=== PATIENT | female | born 1990 | race Hispanic/Latino ===

== ENCOUNTER 2019-06-29 08:43 | Emergency (ER) | payer MEDICAID, OTHER, SELFPAY ==
[2019-06-29 09:53] LABS: Basophils # (Auto) 0.1 K/mm3 (0.0-0.1); Basophils % (Auto) 0.6 % (0.0-1.8); Eosinophils # (Auto) 0.2 K/mm3 (0.0-0.4); Eosinophils % (Auto) 2.4 % (0.0-4.3); Hematocrit 39.7 % (30.3-42.9); Hemoglobin 12.7 gm/dl (10.1-14.3); Lymphocytes # (Auto) 2.5 K/mm3 (1.2-5.4); Lymphocytes % (Auto) 25.1 % (13.4-35.0); Mean Corpuscular HGB Conc 32 % (30-34); Mean Corpuscular Volume 79 fl (79-97); Monocytes # (Auto) 0.5 K/mm3 (0.0-0.8); Platelet Count 384 K/mm3 (140-440); Red Cell Distribution Width 14.4 % (13.2-15.2)
[2019-06-29] MEDS ORDERED: ONDANSETRON 4 MG/2 ML INJ IV ONE (10:05)
[2019-06-29] MEDS ORDERED: SODIUM CHLORIDE 0.9% 1000 ML 1,000 ML IV ONE (10:05)
[2019-06-29] MEDS ORDERED: KETOROLAC 30 MG/1 ML INJ IV ONE (10:05)
--- NOTE | 2019-06-29 10:05 | Emergency Department Report ---
[place] [facility] Chief Complaint: Back Pain/Injury Stated Complaint: KIDNEY STONE/4 MONTHS PAIN Time Seen by Provider: 06/29/19 10:04 ED Review of Systems ROS: Stated complaint: KIDNEY STONE/4 MONTHS PAIN Other details as noted in HPI ED Past Medical Hx - Past Medical History Previous Medical History?: Yes Hx Hypertension: No Hx Congestive Heart Failure: No Hx Diabetes: No Hx Deep Vein Thrombosis: No Hx Renal Disease: No Hx Sickle Cell Disease: No Hx Seizures: No Hx Asthma: Yes (childhood) Hx COPD: No Hx HIV: No Additional medical history: irregular heart rate - Surgical History Past Surgical History?: Yes Additional Surgical History: - Social History Smoking Status: Never Smoker Substance Use Type: None - Medications Home Medications: Home Medications Medication Instructions Recorded Confirmed Last Taken Type Ibuprofen [Motrin 600 MG tab] 600 mg PO Q6H PRN #60 tablet 07/20/13 01/30/15 Unknown Rx oxyCODONE /ACETAMINOPHEN [Percocet 1 - 2 tab PO Q6H PRN #30 tablet 07/20/13 01/30/15 Unknown Rx 5/325 mg] Ibuprofen [Motrin] 800 mg PO Q8H PRN #30 tablet 01/30/15 Unknown Rx oxyCODONE /ACETAMINOPHEN [Percocet 1 - 2 tab PO Q6HR PRN #30 tablet 01/30/15 Unknown Rx 5/325] Dysuria Exam - Exam General: Vital signs noted. No distress. Alert and acting appropriately. Labs: Lab Results 06/29/19 Range/Units 09:21 WBC 10.0 (4.5-11.0) K/mm3 RBC 5.00 (3.65-5.03) M/mm3 Hgb 12.7 (10.1-14.3) gm/dl Hct 39.7 (30.3-42.9) % MCV 79 (79-97) fl MCH 25 L (28-32) pg MCHC 32 (30-34) % RDW 14.4 (13.2-15.2) % Plt Count 384 (140-440) K/mm3 Lymph % (Auto) 25.1 (13.4-35.0) % [place] % (Auto) 5.0 (0.0-7.3) % Eos % (Auto) 2.4 (0.0-4.3) % Baso % (Auto) 0.6 (0.0-1.8) % Lymph # 2.5 (1.2-5.4) K/mm3 [place] # 0.5 (0.0-0.8) K/mm3 Eos # 0.2 (0.0-0.4) K/mm3 Baso # 0.1 (0.0-0.1) K/mm3 Seg Neutrophils % 66.9 (40.0-70.0) % Seg Neutrophils # 6.7 (1.8-7.7) K/mm3 ED Course Vital Signs 06/29/19 09:07 Temperature 98.6 F Pulse Rate 95 H Respiratory 16 Rate Blood Pressure 145/86 [Left] O2 Sat by Pulse 99 Oximetry ED Medical Decision Making - Lab Data Result diagrams: 06/29/19 09:21 Critical care attestation.: If time is entered above; I have spent that time in minutes in the direct care of this critically ill patient, excluding procedure time. ED Disposition Condition: Stable Referrals: PRIMARY CARE, [Primary Care Provider] - 3-5 Days
[2019-06-29 10:17] LABS: Alanine Aminotransferase 14 units/L (7-56); Albumin 4.5 g/dL (3.9-5); BUN/Creatinine Ratio 15; Blood Urea Nitrogen 9 mg/dL (7-17); Calcium 9.5 mg/dL (8.4-10.2); Hemolysis Index 6
--- NOTE | 2019-06-29 11:04 | Emergency Department Report ---
ED General Adult HPI - General Chief complaint: Back Pain/Injury Stated complaint: KIDNEY STONE/4 MONTHS PAIN Time Seen by Provider: 06/29/19 10:04 Source: patient Mode of arrival: Ambulatory Limitations: No Limitations - History of Present Illness Initial comments: This is a 29-year-old female who has been seen twice at [facility] for back pain. She states that in January she was told that she had a 5-1/2 mm kidney stone in the what sounds like the right pelvis of the kidney. 2 weeks ago she return for recurrent back pain and was told she had an 8 on metered kidney stone distal to the kidney I presume in the ureter. She states that she attempted to get follow off with the urologist. However, the office asked her for $385 and advance and she was unable to pay the fee or thought it would be too expensive to have the subsequent care after the initial fee. Respirations states she vomited last night. She complains of right flank pain. She told the nurse that she "just wants the kidney stone removed. She declined pain medicine and an IV. She had a CT of her abdomen and pelvis ordered by the mid-level provider. I have canceled this. This would be the third CT in less than one years time. I have ordered a renal ultrasound and requested her previous CT taken 2 weeks ago at [facility]. It should be noted that we do not have urology coverage today. We will see if the patient has an emergency medical condition that requires transfer to another facility. The patient was encouraged to except medicine and an IV by the nurse. -: Gradual, month(s) Location: right (flank) Quality: aching Consistency: intermittent Improves with: none Worsens with: none Associated Symptoms: other (hematuria) Treatments Prior to Arrival: none - Related Data Previous Rx's Medication Instructions Recorded Last Taken Type Ibuprofen [Motrin 600 MG tab] 600 mg PO Q6H PRN #60 tablet 07/20/13 Unknown Rx oxyCODONE /ACETAMINOPHEN [Percocet 1 - 2 tab PO Q6H PRN #30 tablet 07/20/13 Unknown Rx 5/325 mg] Ibuprofen [Motrin] 800 mg PO Q8H PRN #30 tablet 01/30/15 Unknown Rx oxyCODONE /ACETAMINOPHEN [Percocet 1 - 2 tab PO Q6HR PRN #30 tablet 01/30/15 Unknown Rx 5/325] Nitrofurantoin Pierce/M-Cryst 100 mg PO Q12HR #20 capsule 06/29/19 Unknown Rx [Macrobid CAP] traMADol [Ultram 50 MG tab] 50 mg PO Q6HR PRN #14 tablet 06/29/19 Unknown Rx Allergies Allergy/AdvReac Type Severity Reaction Status Date / Time Penicillins Allergy Unknown Verified 09/10/13 01:03 ED Review of Systems ROS: Stated complaint: KIDNEY STONE/4 MONTHS PAIN Other details as noted in HPI Constitutional: denies: chills, fever Eyes: denies: eye pain, eye discharge, vision change ENT: denies: ear pain, throat pain Respiratory: denies: cough, shortness of breath, wheezing Cardiovascular: denies: chest pain, palpitations Endocrine: no symptoms reported Gastrointestinal: vomiting (yesterday). denies: abdominal pain, diarrhea Genitourinary: as per HPI, hematuria. denies: urgency, dysuria, discharge Musculoskeletal: back pain. denies: joint swelling, arthralgia Skin: denies: rash, lesions Neurological: denies: headache, weakness, paresthesias Psychiatric: denies: anxiety, depression Hematological/Lymphatic: denies: easy bleeding, easy bruising ED Past Medical Hx - Past Medical History Previous Medical History?: Yes Hx Hypertension: No Hx Congestive Heart Failure: No Hx Diabetes: No Hx Deep Vein Thrombosis: No Hx Renal Disease: No Hx Sickle Cell Disease: No Hx Seizures: No Hx Asthma: Yes (childhood) Hx COPD: No Hx HIV: No Additional medical history: irregular heart rate - Surgical History Past Surgical History?: Yes Additional Surgical History: - Social History Smoking Status: Never Smoker Substance Use Type: None - Medications Home Medications: Home Medications Medication Instructions Recorded Confirmed Last Taken Type Ibuprofen [Motrin 600 MG tab] 600 mg PO Q6H PRN #60 tablet 07/20/13 01/30/15 Unknown Rx oxyCODONE /ACETAMINOPHEN [Percocet 1 - 2 tab PO Q6H PRN #30 tablet 07/20/13 01/30/15 Unknown Rx 5/325 mg] Ibuprofen [Motrin] 800 mg PO Q8H PRN #30 tablet 01/30/15 Unknown Rx oxyCODONE /ACETAMINOPHEN [Percocet 1 - 2 tab PO Q6HR PRN #30 tablet 01/30/15 Unknown Rx 5/325] Nitrofurantoin [place]/M-Cryst 100 mg PO Q12HR #20 capsule 06/29/19 Unknown Rx [Macrobid CAP] traMADol [Ultram 50 MG tab] 50 mg PO Q6HR PRN #14 tablet 06/29/19 Unknown Rx ED Physical Exam - General Limitations: No Limitations ED Course Vital Signs 06/29/19 09:07 Temperature 98.6 F Pulse Rate 95 H Respiratory 16 Rate Blood Pressure 145/86 [Left] O2 Sat by Pulse 99 Oximetry - Reevaluation(s) Reevaluation #1: Due the patient's [facility] records indicate that she did have a stone in her proximal ureter associated with hydronephrosis. She was placed on Cipro. I do not know if she was cultured. She had worse pyuria than she has today which is minimal. She has no evidence of pyelonephrosis. The bilateral renal ultrasound shows that she has no hydronephrosis on the right associated with a kidney stone in the right pelvis. Therefore, likely any signs of toxicity or pyelonephrosis the patient will be referred to urology. The urine will be cultured. She will be given appropriate discharge instructions. 06/29/19 13:04 Reevaluation #2: On reexamination the patient looks well. She has no complaint of right flank pain. Indeed she actually refuses medication. Her white count is normal. She does not have a service syndrome. He does note there is no urologist crap game box person at this facility. 06/29/19 13:05 06/29/19 13:07 ED Medical Decision Making - Lab Data Result diagrams: 06/29/19 09:21 06/29/19 09:21 Laboratory Results - last 24 hr 06/29/19 06/29/19 09:21 09:21 WBC 10.0 RBC 5.00 Hgb 12.7 Hct 39.7 MCV 79 MCH 25 L MCHC 32 RDW 14.4 Plt Count 384 Lymph % (Auto) 25.1 [place] % (Auto) 5.0 Eos % (Auto) 2.4 Baso % (Auto) 0.6 Lymph # 2.5 [place] # 0.5 Eos # 0.2 Baso # 0.1 Seg Neutrophils % 66.9 Seg Neutrophils # 6.7 Sodium 141 Potassium 4.3 Chloride 102.5 Carbon Dioxide 24 Anion Gap 19 BUN 9 Creatinine 0.6 L Estimated GFR > 60 BUN/Creatinine Ratio 15 Glucose 96 Calcium 9.5 Total Bilirubin 0.20 AST 14 ALT 14 Alkaline Phosphatase 67 Total Protein 8.0 Albumin 4.5 Albumin/Globulin Ratio 1.3 Critical care attestation.: If time is entered above; I have spent that time in minutes in the direct care of this critically ill patient, excluding procedure time. ED Disposition Clinical Impression: Right flank pain, Right nephrolithiasis, Pyuria Disposition: TO HOME OR SELFCARE Is pt being admited?: No Does the pt Need Aspirin: No Condition: Stable Instructions: Kidney Stones (ED), Urinary Tract Infection in Women (ED) Additional Instructions: Should you develop fever chills or worsening back pain, urinary frequency or just feel sick it is important that he return to the emergency department for evaluation. I have used to the [facility]. They have thousands of urologists of albuterol. It would appear that they will likely recommend lithotripsy which is not an emergency procedure. An allergy to this outside medical clinic. They can follow-up on your urine culture which will be resulted by Tuesday. Prescriptions: Nitrofurantoin Pierce/M-Cryst [Macrobid CAP] 100 mg PO Q12HR #20 capsule traMADol [Ultram 50 MG tab] 50 mg PO Q6HR PRN #14 tablet PRN Reason: Pain Referrals: [facility] [Provider Group] - 3-5 Days PRIMARY CARE, [Primary Care Provider] - 3-5 Days [facility] [Provider Group] - 2-3 Days Time of Disposition: 13:10
--- NOTE | 2019-06-29 12:24 | Ultrasound Report ---
ULTRASOUND RENAL INDICATION: Hematuria. History of renal calculi COMPARISON: No relevant prior imaging study available. FINDINGS: RIGHT KIDNEY: Size: 10.8 cm. Echogenicity: Normal. Cortical thickness: Normal. Stones: There is a 1.6 x 0.6 x 1.2 cm echogenic structure in the right renal pelvis likely representi ng stone. This is not optimally visualized.. Hydronephrosis: None. Cyst or mass: None. LEFT KIDNEY: Size: 10.9 cm. Echogenicity: Normal. Cortical thickness: Normal. Stones: None. Hydronephrosis: None. Cyst or mass: None. Urinary Bladder: No significant abnormality. Free Fluid: None. Additional Findings: None. IMPRESSION 1. There appears to be a relatively large stone in the right renal pelvis. There is no hydronephrosis .. Signer Name: Dionte Malcolm MD Signed: 06/29/2019 12:20 PM Workstation Name: [id number]
[2019-06-29 12:33] LABS: Bilirubin,Urine NEG (Negative); Blood,Urine MOD (Negative); Color,Urine Yellow (Yellow); Mucus,Urine FEW /HPF; Protein,Urine <15 mg/dL mg/dL (Negative); Urobilinogen,Urine < 2.0 mg/dL (<2.0)
[2019-06-29 12:42] LABS: HCG Qualitative,Urine Negative (Negative)
[2019-06-29 13:34] VITALS: BP 138/78
== END 2019-06-29 13:40 | disposition home or self-care (01) ==
LOC: ED 08:43
DX: N20.0 Calculus of kidney (principal); N39.0 Urinary tract infection, site not specified; J45.909 Unspecified asthma, uncomplicated; Z88.0 Allergy status to penicillin
CPT/HCPCS: 36415; 76770; 80053; 81001; 81025; 85025; 87086; 96361; 96374; 96375; 99284; J1885; J2405; J7030

== ENCOUNTER 2019-07-26 10:46 | Emergency (ER) | payer SELFPAY ==
[2019-07-26] MEDS ORDERED: IBUPROFEN PO ONE (11:44)
[2019-07-26] MEDS ORDERED: ZOFRAN ODT PO ONE (11:44)
[2019-07-26 12:34] LABS: HCG Qualitative,Urine Negative (Negative)
[2019-07-26 12:37] LABS: Bilirubin,Urine NEG (Negative); Blood,Urine SM (Negative); Color,Urine Yellow (Yellow); Protein,Urine <15 mg/dL mg/dL (Negative); Urobilinogen,Urine < 2.0 mg/dL (<2.0)
[2019-07-26 12:43] LABS: Basophils # (Auto) 0.1 K/mm3 (0.0-0.1); Basophils % (Auto) 0.9 % (0.0-1.8); Eosinophils # (Auto) 0.2 K/mm3 (0.0-0.4); Eosinophils % (Auto) 2.3 % (0.0-4.3); Hemoglobin 12.5 gm/dl (10.1-14.3); Lymphocytes # (Auto) 2.3 K/mm3 (1.2-5.4); Lymphocytes % (Auto) 24.2 % (13.4-35.0); Mean Corpuscular HGB Conc 33 % (30-34); Mean Corpuscular Volume 79 fl (79-97); Monocytes # (Auto) 0.5 K/mm3 (0.0-0.8); Monocytes % (Auto) 5.1 % (0.0-7.3); Platelet Count 361 K/mm3 (140-440); Red Blood Count 4.81 M/mm3 (3.65-5.03); Red Cell Distribution Width 14.2 % (13.2-15.2)
[2019-07-26 13:02] LABS: BUN/Creatinine Ratio 14; Blood Urea Nitrogen 10 mg/dL (7-17); Calcium 9.4 mg/dL (8.4-10.2); Hemolysis Index 6
--- NOTE | 2019-07-26 14:02 | Ultrasound Report ---
US renal BILAT INDICATION: continued right flank pain with nausea, vomiting. History of renal calculi. COMPARISON: 06/29/2019 renal ultrasound. FINDINGS: Renal sonography suggests grossly normal renal cortical echogenicity and preserved contours . Imaged hepatic echogenic coarsening/possible fatty infiltration. RIGHT KIDNEY 9.9 cm in length with cortical thickness of 1 cm. A 0.5 cm interpolar corticomedullary j unction nonshadowing echogenicity nonspecific. No significant hydronephrosis, though mild prominence of the right proximal ureter just past the renal pelvis not entirely excluded as on image 8. LEFT KIDNEY estimated at 11.4 cm in length with cortical thickness of 1.2 cm. URINARY BLADDER suboptimally distended and assessed. IMPRESSION: 1. No acute significant renal sonographic abnormality, though mild nonspecific prominence of right pr oximal ureter not entirely excluded in this patient with approximately 1.6 x 1.2 cm echogenic right r enal pelvis possible calculus seen previously not definitively identified on the current exam. 2. Other findings, including possible fatty liver. Please also correlate clinically and further with CT, if warranted. Thank you for the opportunity to participate in this patient's care. Signer Name: Charity Pinto Signed: 07/26/2019 1:58 PM Workstation Name: [id number]
--- NOTE | 2019-07-26 17:43 | Emergency Department Report ---
ED General Adult HPI - General Chief complaint: Abdominal Pain Stated complaint: KIDNEY STONES/PAIN Time Seen by Provider: 07/26/19 11:36 Source: patient Mode of arrival: Ambulatory Limitations: No Limitations - History of Present Illness Initial comments: Patient is a 29-year-old female who states for the last 3 months she's had some right flank discomfort. Currently the pain is a 3 out of 10. She called her urologist office job Dr. Pina'angelito stating that she was in pain and was hoping to have surgery to remove the stone. Patient's was told by the front office of the urology clinic to come to the emergency department. Patient states she has no nausea vomiting fevers or chills. There is no radiation of her pain. Severity scale (0 -10): 0 - Related Data Home Medications Medication Instructions Recorded Confirmed Last Taken HYDROcodone/APAP 5-325 [[place] 1 each PO Q6HR PRN 07/19/19 07/26/19 07/25/19 5/325] traMADol [Ultram] 50 mg PO Q6HR PRN 07/26/19 07/26/19 07/25/19 Previous Rx's Medication Instructions Recorded Last Taken Type Nitrofurantoin [place]/M-Cryst 100 mg PO Q12HR #20 capsule 06/29/19 07/25/19 Rx [Macrobid CAP] Allergies Allergy/AdvReac Type Severity Reaction Status Date / Time Penicillins Allergy Unknown Verified 07/26/19 10:47 ED Review of Systems ROS: Stated complaint: KIDNEY STONES/PAIN Other details as noted in HPI Comment: All other systems reviewed and negative ED Past Medical Hx - Past Medical History Hx Hypertension: No Hx Congestive Heart Failure: No Hx Diabetes: No Hx Deep Vein Thrombosis: No Hx Renal Disease: No Hx Sickle Cell Disease: No Hx Seizures: No Hx Kidney Stones: Yes Hx Asthma: Yes ( CHILD ONLY) Hx COPD: No Hx HIV: No Additional medical history: irregular heart rate - Surgical History Additional Surgical History: - Social History Smoking Status: Never Smoker Substance Use Type: None - Medications Home Medications: Home Medications Medication Instructions Recorded Confirmed Last Taken Type Nitrofurantoin [place]/M-Cryst 100 mg PO Q12HR #20 capsule 06/29/19 07/26/19 07/25/19 Rx [Macrobid CAP] HYDROcodone/APAP 5-325 [[place] 1 each PO Q6HR PRN 07/19/19 07/26/19 07/25/19 History 5/325] traMADol [Ultram] 50 mg PO Q6HR PRN 07/26/19 07/26/19 07/25/19 History ED Physical Exam - General Limitations: No Limitations General appearance: alert, in no apparent distress - Head Head exam: Present: atraumatic, normocephalic - Eye Eye exam: Present: normal appearance - ENT ENT exam: Present: mucous membranes moist - Neck Neck exam: Present: normal inspection - Respiratory Respiratory exam: Present: normal lung sounds bilaterally. Absent: respiratory distress, wheezes, rales, rhonchi - Cardiovascular Cardiovascular Exam: Present: regular rate, normal rhythm. Absent: systolic murmur, diastolic murmur, rubs, gallop - GI/Abdominal GI/Abdominal exam: Present: soft, normal bowel sounds. Absent: distended, tenderness, guarding, rebound - Extremities Exam Extremities exam: Present: normal inspection - Back Exam Back exam: Present: normal inspection. Absent: CVA tenderness (R), CVA tenderness (L) - Neurological Exam Neurological exam: Present: alert, oriented X3 - Psychiatric Psychiatric exam: Present: normal affect, normal mood - Skin Skin exam: Present: warm, dry, intact, normal color. Absent: rash ED Course Vital Signs 07/26/19 10:52 Temperature 98.2 F Pulse Rate 73 Respiratory 16 Rate Blood Pressure 135/75 O2 Sat by Pulse 98 Oximetry ED Medical Decision Making - Lab Data Result diagrams: 07/26/19 12:29 07/26/19 12:29 Labs 07/26/19 07/26/19 07/26/19 12:02 12:29 12:29 WBC 9.3 RBC 4.81 Hgb 12.5 Hct 38.0 MCV 79 MCH 26 L MCHC 33 RDW 14.2 Plt Count 361 Lymph % (Auto) 24.2 [place] % (Auto) 5.1 Eos % (Auto) 2.3 Baso % (Auto) 0.9 Lymph # 2.3 [place] # 0.5 Eos # 0.2 Baso # 0.1 Seg Neutrophils % 67.5 Seg Neutrophils # 6.3 Sodium 139 Potassium 4.2 Chloride 102.7 Carbon Dioxide 24 Anion Gap 17 BUN 10 Creatinine 0.7 Estimated GFR > 60 BUN/Creatinine Ratio 14 Glucose 88 Calcium 9.4 Urine Color Yellow Urine Turbidity Cloudy Urine pH 7.0 Ur Specific [place] 1.012 Urine Protein <15 mg/dl Urine Glucose (UA) Neg Urine Ketones Neg Urine Blood Sm Urine Nitrite Neg Ur Reducing Substances Not Reportable Urine Bilirubin Neg Urine Ictotest Not Reportable Urine Urobilinogen < 2.0 Ur Leukocyte Esterase Neg Urine WBC (Auto) 3.0 Urine RBC (Auto) 16.0 U Epithel Cells (Auto) 43.0 H Urine HCG, Qual Negative - Radiology Data Ultrasound shows no change from previous. Patient likely with a stone in the renal pelvis but no obstructive uropathy was found this time. There is no hydronephrosis. - Medical Decision Making There was a prolonged period of time and were unable to get in touch with Dr. Pina. Patient is does appear stable and surgery at this point with be elective. Dr. Pina stated that the patient should've follow-up in clinic tomorrow. Critical care attestation.: If time is entered above; I have spent that time in minutes in the direct care of this critically ill patient, excluding procedure time. ED Disposition Clinical Impression: Kidney stone Disposition: DC-01 TO HOME OR SELFCARE Is pt being admited?: No Does the pt Need Aspirin: No Condition: Stable Instructions: Abdominal Pain (ED) Referrals: PRIMARY CARE, [Primary Care Provider] - 3-5 Days Time of Disposition: 17:43
[2019-07-26 17:50] VITALS: BP 132/72
== END 2019-07-26 17:49 | disposition home or self-care (01) ==
LOC: ED 10:46
DX: N20.0 Calculus of kidney (principal); J45.909 Unspecified asthma, uncomplicated
CPT/HCPCS: 36415; 76770; 80048; 81001; 81025; 85025; Q0162